=== PATIENT | male | born 1990 | race Caucasian/White ===

== ENCOUNTER 2021-12-24 15:17 | Emergency (ER) | payer MEDICAID ==
[~2021-12-24] VITALS: Ht 180.3 cm; Wt 82.0 kg
[2021-12-24 15:26] VITALS: BP 146/83
[2021-12-24] MEDS ORDERED: CIPHCO LEFT EAR (18:47)
== END 2021-12-25 08:01 | disposition home or self-care (01) ==
LOC: ER 15:17
DX: H60.92 Unspecified otitis externa, left ear (principal)
CPT/HCPCS: 99281